=== PATIENT | female | born 1990 | race Caucasian/White ===

== ENCOUNTER 2023-03-26 09:25 | Emergency (ER) | payer BC, SELFPAY ==
[2023-03-26 09:28] VITALS: BP 116/77; PULSE 105; RESP 16; TEMP 36.3; O2SAT 100
[2023-03-26] MEDS: KETOROLAC (*BKC) 60 MG/2 ML VIAL IM (09:59)
[2023-03-26 10:52] LABS: Influenza A QL RT-PCR Negative (Negative); Influenza B QL RT-PCR Negative (Negative); SARS-CoV-2 RNA PCR Negative (Negative)
--- NOTE | 2023-03-26 11:08 | ED.GENADULT ---
HPI - General Adult General Chief complaint: Upper Respiratory Infection Stated complaint: URI Time Seen by Provider: 03/26/23 09:31 History of Present Illness HPI narrative: Patient is a 33-year-old female who presents ER with sinus congestion sore throat. Ongoing over the last 3 days. Reports she had had pneumonia and strep throat couple weeks ago. She had some leftover antibiotics and began taking them 2 days ago. She has not improved. She has body aches. No documented fevers. No chest pain or chest pressure. She does have a cough that has been nonproductive. Related Data Allergies Allergy/AdvReac Type Severity Reaction Status Date / Time No Known Allergies Allergy Verified 03/26/23 10:10 Review of Systems Constitutional: Constitutional: Denies chills, Reports fatigue and Denies fever(s) ENT: Reports nasal congestion and Reports sore throat Cardiovascular: Cardiovascular: Denies chest pain, Denies rapid heart rate and Denies radiating jaw, neck or arm pain Respiratory: Respiratory: Reports cough, Denies dyspnea and Denies wheezing Gastrointestinal: Gastrointestinal: Denies abdominal pain, Denies nausea and Denies vomiting PMFSH Past Medical History Medical History (Updated 03/26/23 @ 11:14 by Tyler Urena MD) Healthy female adult Surgical History Surgical History (Updated 03/26/23 @ 11:10 by Tyler Urena MD) No history of previous surgery Exam Narrative: GENERAL: Well-appearing, well-nourished, and in no acute distress. HEAD: Normocephalic, atraumatic. ENT: Mucous membranes moist. Normal-appearing posterior oropharynx without tonsillar hypertrophy or exudate. Uvula midline without edema. NECK: Supple. CHEST: Clear to auscultation. No respiratory distress. HEART: Tachycardic and regular.. Normal peripheral pulses. EXTREMITIES: Normal range of motion. No edema. NEURO: Alert and oriented x3. PSYCH: Normal mood and affect. Course Course Emergency Course: Educated on diagnosis and treatment plan. Discharge. Vital Signs Vital signs: Vital Signs Temperature 97.3 F L 03/26/23 09:28 Pulse Rate 105 H 03/26/23 09:28 Respiratory Rate 16 03/26/23 09:28 Blood Pressure 116/77 03/26/23 09:28 Pulse Oximetry 100 03/26/23 09:28 Oxygen Delivery Room Air 03/26/23 09:28 Temperature 97.3 F L 03/26/23 09:28 Pulse Rate 105 H 03/26/23 09:28 Respiratory Rate 16 03/26/23 09:28 Blood Pressure 116/77 03/26/23 09:28 Pulse Oximetry 100 03/26/23 09:28 Oxygen Delivery Room Air 03/26/23 09:28 Medical Decision Making Vital Signs Vital Signs: Vital Signs Temperature 97.3 F L 03/26/23 09:28 Pulse Rate 105 H 03/26/23 09:28 Respiratory Rate 16 03/26/23 09:28 Blood Pressure 116/77 03/26/23 09:28 Pulse Oximetry 100 03/26/23 09:28 Oxygen Delivery Room Air 03/26/23 09:28 Temperature 97.3 F L 03/26/23 09:28 Pulse Rate 105 H 03/26/23 09:28 Respiratory Rate 16 03/26/23 09:28 Blood Pressure 116/77 03/26/23 09:28 Pulse Oximetry 100 03/26/23 09:28 Oxygen Delivery Room Air 03/26/23 09:28 Lab Data Labs: Lab Results 03/26/23 Range/Units 10:09 Influenza A (RT-PCR) Negative (Negative) Influenza B (RT-PCR) Negative (Negative) SARS-CoV-2 RNA (RT-PCR) Negative (Negative) Discharge Plan Discharge Clinical Impression: Upper respiratory infection Patient Disposition: Home, Self-Care Condition: Stable Instructions: Viral Syndrome (ED) Additional Instructions: Return the ER if you you cannot keep down food or water, you have chest pain shortness of breath, you lose consciousness, you have additional concerns. Follow-up/Referrals: UNKNOWN,DOCTOR [Primary Care Provider] - 1 Week
== END 2023-03-26 11:25 | disposition home or self-care (01) ==
PROVIDERS: Emergency Provider Emergency Medicine
DX: J06.9 Acute upper respiratory infection, unspecified (principal); Z20.822 Contact with and (suspected) exposure to COVID-19
CPT/HCPCS: 87636; 96372; 99283; J1885